=== PATIENT | male | born 1980 | race Hispanic/Latino ===

== ENCOUNTER 2019-06-09 16:22 | Emergency (ER) | payer SELFPAY ==
[2019-06-09] MEDS ORDERED: TETANUS & DIPHTHERIA TOX,ADULT 0.5 ML VIAL ONE (17:14)
[2019-06-09] MEDS ORDERED: HYDROCODONE/APAP 7.5/325 MG TAB ONE (17:14)
[2019-06-09] MEDS ORDERED: CEFAZOLIN/SWI 1gm 1 GM/10 ML SYR ONE (17:14)
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
[2019-06-09 20:16] VITALS: BP 134/87; TEMP 98; O2SAT 99
== END 2019-06-09 18:12 | disposition home or self-care (01) ==
LOC: ER 16:22
DX: S91.342A Puncture wound with foreign body, left foot, initial encounter (principal); W33.02XA Accidental discharge of hunting rifle, initial encounter; Y93.89 Activity, other specified; Y92.009 Unspecified place in unspecified non-institutional (private) residence as the place of occurrence of the external cause; Z23 Encounter for immunization
CPT/HCPCS: 90471; 90714; 96365; 99284; J0690

== ENCOUNTER 2023-06-29 13:07 | Emergency (ER) | payer SELFPAY ==
--- OUTSIDE RECORDS SUMMARY | 2023-06-29 13:10 | XMS REPORT | Continuity of Care Document ---
:1980 Author Organization [facility] t Address [address] [place] [address] [address] [place] [address] Care Team Providers Name Role Phone PCP, PATIENT DOES NOT HAVE A Primary Care Physician Unavaila ble RADIOLOGY Attending Clinician Unavailable CHEYENNE CARTY Admitting Clinician Unavailable Problems This patient has no known problems. Allergies, Adverse Reactions, Alerts Allergy Allergy Status Severity Reaction(s) Onset Inactive Treating Comm ents Source Name Type Date Date Clinician NO KNOWN Drug Active [facility] Medications This patient has no known medications. Procedures This patient has no known procedures. Encounters Start End Encounter Admission Attending Care Care Encounter Source Date/Time Date/Time Type Type Clinicians Facility Department ID 2019-10-15 2019-10-15 Outpatient R RADIOLOGY [facility] [id number] [facility] 12:34:21 23:59:00 [facility] Results This patient has no known results.
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
[2023-06-29 14:12] VITALS: BP 157/90; TEMP 97.7; O2SAT 99
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
== END 2023-06-29 13:56 | disposition home or self-care (01) ==
LOC: ER 13:07
DX: M25.512 Pain in left shoulder (principal)
CPT/HCPCS: 99283